=== PATIENT | male | born 1945 | race Hispanic/Latino ===

== ENCOUNTER 2016-07-26 16:45 | Emergency (ER) | payer MEDICARE ==
[2016-07-26 17:06] VITALS: BMI 19.0
[2016-07-26] MEDS ORDERED: Sodium Chloride 0.9% 1,000 ML IV STA (17:29)
[2016-07-26 17:33] VITALS: RESP 18; TEMP 98.3
[2016-07-26 17:35] LABS: ADD MANUAL DIFF? NO
--- NOTE | 2016-07-26 17:38 | ED PDOC ---
Arrival/HPI - General Chief Complaint: Abdominal Pain Time Seen by Provider: 07/26/16 17:04 Historian: Patient - History of Present Illness Narrative History of Present Illness (Text): 07/26/16 17:16 A 71 year old male, whose past medical history includes hypertension, hyperlipidemia, enlarged prostate, and mild dementia presents to the emergency department complaining of left upper lateral abdominal pain since this afternoon. Patient reports pain began around lunch time. He did not have lunch today because he had no appetite. Patient notes some nausea but denies any vomiting. Patient has some dysuria but this is baseline for him due to the prostate. Patient notes his last bowel movement was this morning. He denies any back pain, fever, chills, dizziness, chest pain, shortness of breath, cough, or any other complaints at this time. Patient mentions pain has improved after taking 3 Motrins and Gas-X and hour prior to arrival. PMD: Dr. Lazaro ([facility] Time/Duration: 4-6 hours Symptom Onset: Sudden Symptom Course: Other Quality: Other Activities at Onset: Rest Context: Home Past Medical History - Provider Review Nursing Documentation Reviewed: Yes - Infectious Disease Hx of Infectious Diseases: None - Cardiac Hx Hypertension: Yes - Pulmonary Hx Respiratory Disorders: No - Neurological Hx Neurological Disorder: No - HEENT Hx HEENT Disorder: No - Renal Hx Renal Disorder: No - Endocrine/Metabolic Hx Endocrine Disorders: No - Hematological/Oncological Hx Blood Disorders: No - Integumentary Hx Dermatological Disorder: No - Musculoskeletal/Rheumatological Hx Musculoskeletal Disorders: No - Gastrointestinal Hx Gastrointestinal Disorders: No - Genitourinary/Gynecological Hx Genitourinary Disorders: No - Psychiatric Hx Psychophysiologic Disorder: No Hx Substance Use: No - Surgical History Other/Comment: b/l shoulder surgery and left foot surgery. - Anesthesia Hx Anesthesia: No Hx Anesthesia Reactions: No Hx Malignant Hyperthermia: No Family/Social History - Physician Review Nursing Documentation Reviewed: Yes Family/Social History: Unknown Family HX Smoking Status: Never Smoked Hx Alcohol Use: No Hx Substance Use: No Allergies/Home Meds Allergies/Adverse Reactions: Allergies No Known Allergies Allergy (Verified 07/26/16 17:06) Review of Systems - Physician Review All systems were reviewed & negative as marked: Yes - Review of Systems Constitutional: absent: Fevers Respiratory: absent: SOB Cardiovascular: absent: Chest Pain Gastrointestinal: Abdominal Pain Genitourinary Male: Dysuria (normal) Neurological: absent: Headache, Dizziness Physical Exam Vital Signs Reviewed: Yes Vital Signs Temp Pulse Resp BP Pulse Ox 07/26/16 17:32 98.3 F 65 18 143/83 98 07/26/16 17:06 97.9 F 65 17 143/83 95 Temperature: Afebrile Blood Pressure: Normal Pulse: Regular Respiratory Rate: Normal Appearance: Positive for: Well-Appearing, Non-Toxic, Comfortable Pain Distress: None Mental Status: Positive for: Alert and Oriented X 3 - Systems Exam Head: Present: Atraumatic, Normocephalic Pupils: Present: PERRL Conjunctiva: Present: Normal Mouth: Present: Moist Mucous Membranes Pharnyx: Present: Normal. No: ERYTHEMA Neck: Present: Normal Range of Motion Respiratory/Chest: Present: Clear to Auscultation, Good Air Exchange. No: Respiratory Distress, Accessory Muscle Use Cardiovascular: Present: Regular Rate and Rhythm, Normal S1, S2. No: Murmurs Abdomen: Present: Tenderness (tenderness with palpation to the left upper quadrant), Normal Bowel Sounds. No: Distention, Peritoneal Signs, Rebound, Guarding Back: Present: Normal Inspection Upper Extremity: Present: Normal Inspection. No: Cyanosis, Edema Lower Extremity: Present: Normal Inspection. No: Edema Neurological: Present: GCS=15, CN II-XII Intact, Speech Normal Skin: Present: Warm, Dry, Normal Color. No: Rashes Psychiatric: Present: Alert, Oriented x 3, Normal Insight, Normal Concentration Medical Decision Making ED Course and Treatment: 07/26/16 17:16 Impression: A 71 year old male with left upper quadrant tenderness. Differential Diagnosis include but are not limited to: diverticulitis vs. nephrolithiasis Plan: -- EKG -- Abdomen/Pelvis CT -- Labs -- Urinalysis -- IV Fluids -- Reassess and disposition Progress Notes: EKG: Ordered, reviewed, and independently interpreted the EKG. Rate : 68 BPM Rhythm : NSR Interpretation : normal axis, normal interval, no ST/T changes. Comparison : No previous EKG for comparison. 07/26/16 18:45 Abdomen/Pelvis CT: Creator : Juan Brantley MD COMPARISON: None. FINDINGS: LOWER THORAX: Unremarkable. LIVER: Unremarkable. No gross lesion or ductal dilatation. GALLBLADDER AND BILE DUCTS: Unremarkable. PANCREAS: Unremarkable. No gross lesion or ductal dilatation. SPLEEN: Unremarkable. ADRENALS: Unremarkable. No mass. KIDNEYS AND URETERS: 3 mm calculus left ureterovesical junction. Proximal hydroureter and hydronephrosis. No upper tract calculi identified. The left kidney is mildly edematous. Right kidney: No acute findings. Eccentric incompletely characterized cyst projecting off the lateral aspect midpole region 2.4 cm. VASCULATURE: Unremarkable. No aortic aneurysm. BOWEL: Diverticulosis without an acute inflammatory component or other associated pathologic process. APPENDIX: Unremarkable. Normal appendix. PERITONEUM: Unremarkable. No free fluid. No free air. LYMPH NODES: Unremarkable. No enlarged lymph nodes. BLADDER: Unremarkable. REPRODUCTIVE: Diffusely enlarged prostate 6 x 6.1 cm. BONES: No acute fracture. Multilevel degenerative changes. Grade 1 retrolisthesis L5-S1. OTHER FINDINGS: None. IMPRESSION: Unilateral, left obstructive uropathy related to 3 mm calculus left ureterovesical junction. Proximal left hydroureter, hydronephrosis and mild edema of the left kidney. 07/26/16 21:18 Patient with noted history. Labs with minimal leukocytosis; chemistry is unremarkable. L side shows 3 mm ureteral with L hydro. Patient given morphine initially with mild improvement then full improvement with toradol and feeling much better. He said he will f/u Dr. Herrera - will d/c on nsaid and percocet and cipro and f/u urology. He is already on flomax at home. - Lab Interpretations Lab Results: 07/26/16 17:15 07/26/16 17:15 Lab Results 07/26/16 19:57: Urine Color Dark yellow, Urine Appearance Sl cloudy, Urine pH 6.0, Ur Specific Childs >= 1.030, Urine Protein 30 H, Urine Glucose (UA) Negative, Urine Ketones Negative, Urine Blood Moderate H, Urine Nitrate Negative , Urine Bilirubin Negative, Urine Urobilinogen 0.2, Ur Leukocyte Esterase Trace H, Urine RBC 25 - 30, Urine WBC 2 - 5, Ur Epithelial Cells 1 - 3, Urine Bacteria Small, Urine Other Mucus 07/26/16 17:15: WBC 11.4 H, RBC 4.94, Hgb 15.6, Hct 44.5, MCV 90.1, MCH 31.6, MCHC 35.1, RDW 13.2, Plt Count 285, MPV 10.4, Gran % 76.3 H, Lymph % (Auto) 16.2 L, [place] % (Auto) 6.9 H, Eos % (Auto) 0.5 L, Baso % (Auto) 0.1, Gran # 8.69 H, Lymph # 1.9, [place] # 0.8 H, Eos # 0.1, Baso # 0.01, PT 11.1, INR 1.03, APTT 25.7, Sodium 136, Potassium 4.9, Chloride 99, Carbon Dioxide 26, Anion Gap 16, BUN 15, Creatinine 1.0, Est GFR ( Amer) > 60, Est GFR (Non-Af Amer) > 60 , Random Glucose 142 H, Calcium 10.0, Total Bilirubin 1.3, AST 39, ALT 37, Alkaline Phosphatase 101, Lactate Dehydrogenase 483, Total Creatine Kinase 89, Troponin I < 0.01, Total Protein 8.4 H, Albumin 4.4, Globulin 4.0, Albumin/ Globulin Ratio 1.1, Amylase 63, Lipase 79 I have reviewed the lab results: Yes - RAD Interpretation Radiology Orders: 07/26/16 17:27 ABD & PELVIS W/O PO OR IV CONT [CT] Stat - Medication Orders Current Medication Orders: Discontinued Medications Famotidine (Pepcid) 20 mg IVP STAT STA Stop: 07/26/16 18:01 Last Admin: 07/26/16 18:37 Dose: 20 MG IVP Administration Document 07/26/16 18:37 SE (Rec: 07/26/16 18:37 [id number]) Charges for Administration # of IVP Administrations 1 Sodium Chloride (Sodium Chloride 0.9%) 1,000 mls @ 999 mls/hr IV .Q1H1M STA Stop: 07/26/16 18:29 Last Admin: 07/26/16 17:33 Dose: 999 MLS/HR eMAR Start Stop Document 07/26/16 17:33 SE (Rec: 07/26/16 17:33 [id number]) Intravenous Solution Start Date 07/26/16 Start Time 17:33 Ketorolac Tromethamine (Toradol) 30 mg IVP STAT STA Stop: 07/26/16 18:47 Last Admin: 07/26/16 18:56 Dose: 30 MG IVP Administration Document 07/26/16 18:56 SE (Rec: 07/26/16 18:56 SE [id number]) Charges for Administration # of IVP Administrations 1 Morphine Sulfate (Morphine) 2 mg IVP STAT STA Stop: 07/26/16 18:00 Last Admin: 07/26/16 18:38 Dose: 2 MG MAR Pain Assessment Document 07/26/16 18:38 SE (Rec: 07/26/16 18:38 SE [id number]) Pain Reassessment Is this a pain reassessment? No Sleep Is patient sleeping during reassessment? No Presence of Pain Presence of Pain Yes IVP Administration Document 07/26/16 18:38 SE (Rec: 07/26/16 18:38 SE [id number]) Charges for Administration # of IVP Administrations 1 Ondansetron HCl (Zofran Inj) 4 mg IVP STAT STA Stop: 07/26/16 18:01 Last Admin: 07/26/16 18:37 Dose: 4 MG IVP Administration Document 07/26/16 18:37 SE (Rec: 07/26/16 18:38 SE [id number]) Charges for Administration # of IVP Administrations 1 - Scribe Statement The provider has reviewed the documentation as recorded by the Lebron Cruz Provider Scribe Attestation: All medical record entries made by the Scribe were at my direction and personally dictated by me. I have reviewed the chart and agree that the record accurately reflects my personal performance of the history, physical exam, medical decision making, and the department course for this patient. I have also personally directed, reviewed, and agree with the discharge instructions and disposition. Disposition/Present on Arrival - Present on Arrival Any Indicators Present on Arrival: No History of DVT/PE: No History of Uncontrolled Diabetes: No Urinary Catheter: No History of Decub. Ulcer: No History Surgical Site Infection Following: None - Disposition Have Diagnosis and Disposition been Completed?: Yes Diagnosis: Left ureteral stone Disposition: HOME/ ROUTINE Disposition Time: 21:25 Patient Plan: Discharge Condition: GOOD Discharge Instructions (ExitCare): Ureteral Stones (ED) Additional Instructions: Drink plenty of fluids, about 3 liters daily. Continue your flomax daily. Take the medications as precribed. Follow up with urology. Return to the emergency department if any new concerning symptoms. Prescriptions: Ciprofloxacin [Cipro] 1 tab PO BID #10 tab Naproxen [Naprosyn Tab] 1 tab PO BID #20 tab oxyCODONE/Acetaminophen [Percocet 5/325 mg Tab] 1 tab PO Q6H PRN #20 tab PRN Reason: Pain, Severe (8-10)
[2016-07-26 17:52] LABS: BASO # 0.01 K/mm3 (0.0-2.0); BASO % 0.1 % (0.0-3.0); EOS # 0.1 (0.0-0.7); EOS % 0.5 % (1.5-5.0); GRAN # 8.69 (1.4-6.5); GRAN % 76.3 % (50.0-68.0); HEMATOCRIT 44.5 % (42.0-52.0); LYMPH # 1.9 (1.2-3.4); LYMPH % 16.2 % (22.0-35.0); MEAN CELL VOLUME 90.1 fL (80.0-105.0); MEAN CORPUSCULAR HEMOGLOBIN 31.6 pg (25.0-35.0); MEAN CORPUSCULAR HGB CONC 35.1 g/dl (31.0-37.0); MEAN PLATELET VOLUME 10.4 fl (7.0-11.0); MONO # 0.8 (0.1-0.6); MONO % 6.9 % (1.0-6.0); PLATELET COUNT 285 10^3/uL (120.0-450.0); RED CELL DISTRIBUTION WIDTH 13.2 % (11.5-14.5); WHITE BLOOD COUNT 11.4 10^3/ul (4.5-11.0)
[2016-07-26 17:57] LABS: ALB/GLOB RATIO 1.1 (1.1-1.8); ALKALINE PHOSPHATASE 101 U/L (38-133); ALT/SGPT 37 U/L (7-56); AMYLASE 63 U/L (35-125); AST/SGOT 39 U/L (15-59); BILIRUBIN,TOTAL 1.3 mg/dL (0.2-1.3); BLOOD UREA NITROGEN 15 mg/dL (7-21); CARBON DIOXIDE 26 mmol/L (21-33); CHLORIDE 99 mmol/L (98-107); GFR AFRICAN-AMERICAN > 60; GLUCOSE,RANDOM 142 mg/dL (70-110); LIPASE 79 U/L (23-300); POTASSIUM 4.9 mmol/L (3.6-5.0); SODIUM 136 mmol/L (132-148); TOTAL PROTEIN 8.4 g/dL (5.8-8.3)
[2016-07-26] MEDS ORDERED: Morphine 2 mg/ml ISec IVP STA (17:59)
[2016-07-26 18:11] LABS: INR 1.03 (0.93-1.08); PARTIAL THROMBOPLASTIN TIME 25.7 Seconds (23.7-30.8)
[2016-07-26 18:16] LABS: TROPONIN I < 0.01 ng/mL
--- NOTE | 2016-07-26 18:44 | CT ---
PROCEDURE: CT Abdomen and Pelvis without intravenous contrast HISTORY: L lateral abd pain-r/o diverticulitis/renal colic COMPARISON: None. TECHNIQUE: Technique. Contrast Dose: Radiation dose: Total exam DLP = mGy-cm. This CT exam was performed using one or more of the following dose reduction techniques: Automated exposure control, adjustment of the mA and/or kV according to patient size, and/or use of iterative reconstruction technique. FINDINGS: LOWER THORAX: Unremarkable. LIVER: Unremarkable. No gross lesion or ductal dilatation. GALLBLADDER AND BILE DUCTS: Unremarkable. PANCREAS: Unremarkable. No gross lesion or ductal dilatation. SPLEEN: Unremarkable. ADRENALS: Unremarkable. No mass. KIDNEYS AND URETERS: 3 mm calculus left ureterovesical junction. Proximal hydroureter and hydronephrosis. No upper tract calculi identified. The left kidney is mildly edematous. Right kidney: No acute findings. Eccentric incompletely characterized cyst projecting off the lateral aspect midpole region 2.4 cm. VASCULATURE: Unremarkable. No aortic aneurysm. BOWEL: Diverticulosis without an acute inflammatory component or other associated pathologic process. APPENDIX: Unremarkable. Normal appendix. PERITONEUM: Unremarkable. No free fluid. No free air. LYMPH NODES: Unremarkable. No enlarged lymph nodes. BLADDER: Unremarkable. REPRODUCTIVE: Diffusely enlarged prostate 6 x 6.1 cm. BONES: No acute fracture. Multilevel degenerative changes. Grade 1 retrolisthesis L5-S1. OTHER FINDINGS: None. IMPRESSION: Unilateral, left obstructive uropathy related to 3 mm calculus left ureterovesical junction. Proximal left hydroureter, hydronephrosis and mild edema of the left kidney.
[2016-07-26 20:34] LABS: URINE BILIRUBIN NEGATIVE (NEGATIVE); URINE BLOOD MODERATE (NEGATIVE); URINE GLUCOSE (UA) NEGATIVE (NEGATIVE); URINE KETONE NEGATIVE (NEGATIVE); URINE LEUKOCYTE ESTERASE TRACE Leu/uL (NEGATIVE); URINE PROTEIN 30 mg/dL (<30 mg/dL); URINE UROBILINOGEN 0.2 E.U./dL (<1 E.U./dL)
[2016-07-26 20:41] LABS: URINE APPEARANCE SL CLOUDY (CLEAR); URINE COLOR DARK YELLOW (YELLOW)
[2016-07-26 20:54] LABS: URINE RBC 25 - 30 /hpf (0-2)
[2016-07-26 20:55] LABS: URINE BACTERIA SMALL (NEG)
[2016-07-26 21:39] VITALS: BP 153/78; PULSE 67; O2SAT 95
--- NOTE | 2016-07-27 18:06 | CARD ---
APPROVED REPORT EKG Measurement Heart [id number] <Conclusion> Normal sinus rhythm Normal ECG
== END 2016-07-26 21:40 | disposition home or self-care (01) ==
LOC: ED 16:45
DX: N20.1 Calculus of ureter (principal); I10 Essential (primary) hypertension; E78.5 Hyperlipidemia, unspecified; F03.90 Unspecified dementia, unspecified severity, without behavioral disturbance, psychotic disturbance, mood disturbance, and anxiety
CPT/HCPCS: 74176; 80053; 81001; 82150; 82550; 83615; 83690; 84484; 85025; 85610; 85730; 87086; 93005; 96374; 96375; 99284; J1885; J2270; J2405; J7040